=== PATIENT | female | born 2000 | race Two or more races ===

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

== ENCOUNTER 2018-01-04 18:49 | Emergency (ER) | payer MEDICAID ==
[2018-01-04 19:08] VITALS: BP 124/80
--- NOTE | 2018-01-04 21:34 | EDM.PDOCBH ---
ED HPI GENERAL MEDICAL PROBLEM - General Chief Complaint: Behavioral/Psych Stated Complaint: eval Time Seen by Provider: 01/04/18 21:15 Source of Information: Reports: Patient, RN History Limitations: Reports: No Limitations - History of Present Illness INITIAL COMMENTS - FREE TEXT/NARRATIVE: 17 yo female with a hx of depression and who has not been taking her antidepressant medications as directed presents overwhelmed because of some events recently in her personal life. Is not suicidal. Is not connected with a counselor currently. Is here with her mother. Denies any ingestions. Onset: Gradual Duration: Chronic (worse today.) Quality: Reports: Other (no pain. ) Severity: Moderate Improves with: Reports: None Worsens with: Reports: Other (personal stressors) Context: Reports: Other (hx of depression. 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 (see below) (none) denies pain Pain Score (Numeric/FACES): 0 - Related Data Allergies Allergy/AdvReac Type Severity Reaction Status Date / Time No Known Allergies Allergy Verified 01/04/18 19:21 Home Meds: Home Meds Montelukast [Singulair] 5 mg PO DAILY PRN 03/16/15 [History] Norgestimate-Ethinyl Estradiol [Previfem Tablet] 1 tab PO DAILY 03/16/15 [ History] Omeprazole 20 mg PO DAILY 03/16/15 [History] QUEtiapine Fumarate [Quetiapine Fumarate] 800 mg PO QPM 03/16/15 [History] buPROPion [Wellbutrin] 300 mg PO QAM 10/28/17 [History] busPIRone [Buspar] 30 mg PO BID 10/28/17 [History] Past Medical History HEENT History: Reports: Other (See Below) Other HEENT History: seasonal allergies Gastrointestinal History: Reports: GERD Psychiatric History: Reports: Bipolar, Depression, Emotional Problems, Psych Hospitalization(s), Suicide Attempt, Suicidal Ideation - Past Surgical History HEENT Surgical History: Reports: Adenoidectomy Social & Family History - Tobacco Use Smoking Status *Q: Current Every Day Smoker Years of Tobacco use: 1 Packs/Tins Daily: 0.1 Used Tobacco, but Quit: Yes Month/Year Tobacco Last Used: 3 Second Hand Smoke Exposure: No - Caffeine Use Caffeine Use: Reports: Soda, Tea - Recreational Drug Use Recreational Drug Use: Yes Drug Use in Last 12 Months: Yes Recreational Drug Type: Reports: Marijuana/Hashish Recreational Drug Use Frequency: Rarely - Living Situation & Occupation Living situation: Reports: Single Occupation: Student ED ROS GENERAL - Review of Systems Review Of Systems: See Below Constitutional: Reports: No Symptoms HEENT: Reports: No Symptoms Respiratory: Reports: No Symptoms Cardiovascular: Reports: No Symptoms Endocrine: Reports: No Symptoms GI/Abdominal: Reports: No Symptoms : Reports: No Symptoms Musculoskeletal: Reports: No Symptoms Skin: Reports: No Symptoms Neurological: Reports: No Symptoms Psychiatric: Reports: Depression. Denies: Suicidal Ideation ED EXAM, BEHAVIORAL HEALTH - Physical Exam Exam: See Below Exam Limited By: No Limitations General Appearance: Alert, WD/WN, No Apparent Distress Eye Exam: Bilateral Eye: Normal Inspection Ears: Normal External Exam, Normal Canal, Hearing Grossly Normal Nose: Normal Inspection, Normal Mucosa, No Blood Throat/Mouth: Normal Inspection, Normal Lips, Normal Oropharynx, Normal Voice, No Airway Compromise Head: Atraumatic, Normocephalic Neck: Normal Inspection, Supple, Non-Tender Respiratory/Chest: No Respiratory Distress, Lungs Clear, Normal Breath Sounds, No Accessory Muscle Use Cardiovascular: Regular Rate, Rhythm GI/Abdominal: Non-Tender Back Exam: Normal Inspection Extremities: Normal Inspection, Normal Range of Motion Neurological: Alert, CN II-XII Intact, Normal Cognition, Normal Gait, No Motor/ Sensory Deficits, Oriented x 3 Psychiatric: Alert, Normal Cognition, Oriented, Depressed Mood, Flat Affect. No : Homicidal Thoughts, Suicidal Thoughts Skin Exam: Warm, Dry, Intact, Normal color, No rash COURSE, BEHAVIORAL HEALTH COMP - Course Vital Signs: Last Vital Signs Temp 35.3 C 01/04/18 19:30 Pulse 100 01/04/18 19:30 Resp 16 01/04/18 19:30 BP 124/80 01/04/18 19:30 Pulse Ox 99 01/04/18 19:30 Orders, Labs, Meds: Active Orders 24 hr Category Date Time Status DRUG SCREEN, URINE [URCHEM] Stat Lab 01/04/18 19:44 Ordered Laboratory Tests 01/04/18 Range/Units 19:53 Ethyl Alcohol < 3 mg/dL Medical Clearance: 01/04/18 21:34 Had a phone conversation with Crisis, felt safe for discharge. Departure - Departure Time of Disposition: 21:33 Disposition: Home, Self-Care 01 Condition: Good Clinical Impression: Depressive disorder - Discharge Information Referrals: Esther Schultz MD [Primary Care Provider] - Forms: ED Department Discharge Additional Instructions: Resume your usual medications. Call the Crisis number to get assistance with finding a counselor. Return here as needed. - My Orders Last 24 Hours: My Active Orders 01/04/18 19:44 DRUG SCREEN, URINE [URCHEM] Stat - Assessment/Plan Last 24 Hours: My Active Orders 01/04/18 19:44 DRUG SCREEN, URINE [URCHEM] Stat
== END 2018-01-04 21:50 | disposition home or self-care (01) ==
LOC: JP.ED 18:49
DX: F32.9 Major depressive disorder, single episode, unspecified (principal); F17.210 Nicotine dependence, cigarettes, uncomplicated; K21.9 Gastro-esophageal reflux disease without esophagitis; Z79.899 Other long term (current) drug therapy
CPT/HCPCS: 36415; 99284; G0480

== ENCOUNTER 2019-10-24 15:42 | Emergency (ER) | payer MEDICAID ==
[2019-10-24 15:59] VITALS: BP 109/71; PULSE 100
--- NOTE | 2019-10-24 16:25 | EDM.PDOCBH ---
ED HPI GENERAL MEDICAL PROBLEM - General Chief Complaint: Behavioral/Psych Stated Complaint: EVAL Time Seen by Provider: 10/24/19 16:16 Source of Information: Reports: Patient, Family, RN Notes Reviewed History Limitations: Reports: No Limitations - History of Present Illness INITIAL COMMENTS - FREE TEXT/NARRATIVE: 19-year-old female presents emergency department a complaint of anxiety, she does have a follow-up appointment with her mental health provider on Friday of this next week she states she needs something to just help calm her down, she has tried benzodiazepines in the past but did not like the side effects that she has used BuSpar in the past with good results. - Related Data Allergies Allergy/AdvReac Type Severity Reaction Status Date / Time No Known Allergies Allergy Verified 10/24/19 16:03 Home Meds: Home Meds Divalproex Sodium [Depakote ER] 1,000 mg PO BEDTIME 10/24/19 [History] busPIRone [Buspar] 10 mg PO BID #30 tab 10/24/19 [Rx] Past Medical History HEENT History: Reports: Other (See Below) Other HEENT History: seasonal allergies Gastrointestinal History: Reports: GERD Psychiatric History: Reports: Anxiety, Bipolar, Depression, Emotional Problems, Psych Hospitalization(s), Suicide Attempt, Suicidal Ideation Hematologic History: Reports: Other (See Below) Other Hematologic History: vitamin d defficient - Past Surgical History HEENT Surgical History: Reports: Adenoidectomy Female Surgical History: Reports: None Social & Family History - Tobacco Use Second Hand Smoke Exposure: No - Caffeine Use Caffeine Use: Reports: Soda - Recreational Drug Use Recreational Drug Use: No - Living Situation & Occupation Living situation: Reports: Single Occupation: Student ED ROS GENERAL - Review of Systems Review Of Systems: See Below Constitutional: Reports: No Symptoms Psychiatric: Reports: Anxiety. Denies: Depression, Homicidal Ideation, Suicidal Ideation ED EXAM, BEHAVIORAL HEALTH - Physical Exam Exam: See Below Exam Limited By: No Limitations General Appearance: Alert, WD/WN, No Apparent Distress Psychiatric: Alert, Normal Affect, Normal Cognition, Normal Mood, Oriented COURSE, BEHAVIORAL HEALTH COMP - Course Vital Signs: Last Vital Signs Temp 98.0 F 10/24/19 15:56 Pulse 100 10/24/19 15:56 Resp 16 10/24/19 15:56 BP 109/71 10/24/19 15:56 Pulse Ox 98 10/24/19 15:56 Departure - Departure Time of Disposition: 16:24 Disposition: Home, Self-Care 01 Condition: Fair Clinical Impression: Anxiety - Discharge Information Prescriptions: busPIRone [Buspar] 10 mg PO BID #30 tab Instructions: Living With Anxiety Referrals: Adelia Barreto PA-C [Primary Care Provider] - Additional Instructions: Try the BuSpar 1 tablet twice a day this prescription has been sent to [facility] pharmacy please keep your follow-up appointment with your primary care next week Sepsis Event Note - Evaluation Sepsis Screening Result: No Definite Risk - Focused Exam Vital Signs: Vital Signs Temp Pulse Resp BP Pulse Ox 10/24/19 15:56 98.0 F 100 16 109/71 98 Date Exam was Performed: 10/24/19 Time Exam was Performed: 16:22 - Assessment/Plan Plan: Assessment Acuity = acute Site and laterality = anxiety Etiology = probable underlying generalized anxiety disorder Manifestations = none Location of injury = Home Lab values = none Plan Prescription for BuSpar 10 mg p.o. 3 times daily PRN total #30 she will follow- up with her mental health provider on Friday of this next week This note was dictated using AddThis voice recognition software please call with any questions on syntax or grammar.
== END 2019-10-24 16:38 | disposition home or self-care (01) ==
LOC: JP.ED 15:42
DX: F41.9 Anxiety disorder, unspecified (principal); Z79.899 Other long term (current) drug therapy
CPT/HCPCS: 99283

== ENCOUNTER 2023-02-19 08:49 | Emergency (ER) | payer MEDICAID ==
[2023-02-19] MEDS ORDERED: Ketorolac 30 MG/ML SDV IM ONE (09:22)
[2023-02-19] MEDS ORDERED: Methocarbamol 500 MG Tab PO ONE (09:26)
[2023-02-19 09:32] LABS: BASOPHILS PERCENT AUTO 0.2 % (0.1-1.3); EOSINOPHILS ABSOLUTE AUTO 0.13 K/uL (0.00-0.40); EOSINOPHILS PERCENT AUTO 1.1 % (0.0-5.4); HEMATOCRIT 35.5 % (34.3-46.0); HEMOGLOBIN 11.8 g/dL (11.2-15.5); IMMATURE GRAN ABSOLUTE AUTO 0.04 K/uL (0.00-0.23); IMMATURE GRAN PERCENT AUTO 0.3 % (0.0-0.7); LYMPHOCYTES ABSOLUTE AUTO 2.96 K/uL (0.8-3.3); LYMPHOCYTES PERCENT AUTO 25.9 % (11.4-47.7); MEAN CORPUSCULAR HEMOGLOBIN 27.3 pg (31.6-35.5); MEAN CORPUSCULAR HGB CONC 33.2 g/dL (31.6-35.5); MEAN CORPUSCULAR VOLUME 82.2 fL (81.4-99.0); MONOCYTES PERCENT AUTO 6.1 % (3.3-12.6); NEUTROPHILS ABSOLUTE AUTO 7.59 K/uL (1.0-7.6); NEUTROPHILS PERCENT AUTO 66.4 % (40.0-78.1); PLATELET COUNT,PLT 243 K/uL (130-375); RED BLOOD CELL COUNT 4.32 M/uL (3.77-5.24); WHITE BLOOD CELL COUNT,WBC 11.4 K/uL (3.2-11.0)
[2023-02-19 09:41] LABS: BASOPHILS ABSOLUTE AUTO 0.02 K/uL (0.00-0.10)
[2023-02-19 10:54] VITALS: BP 132/87; PULSE 88
== END 2023-02-19 10:50 | disposition home or self-care (01) ==
LOC: JP.ED 08:49
DX: S29.012A Strain of muscle and tendon of back wall of thorax, initial encounter (principal); R09.1 Pleurisy; Z87.891 Personal history of nicotine dependence
CPT/HCPCS: 36415; 71046; 85025; 86140; 96372; 99284; A9270; J1885